=== PATIENT | male | born 1985 | race Caucasian/White ===

== ENCOUNTER 2016-11-25 12:08 | Inpatient (IN) | payer OTHER ==
[2016-11-25 13:26] VITALS: BMI 24.7
--- NOTE | 2016-11-25 15:21 | HP ---
COWS - Scale Resting Pulse: 1= [place] 81-100 Sweatin=Flushed/Facial Moisture Restless Observation: 3= Extraneous Movement Pupil Size: 2= Moderately Dilated Bone or Joint Aches: 2= Severe Diffuse Aches Runny Nose/ Eye Tearin= Runny Nose/Eyes GI Upset > 30mins: 3= Vomiting/Diarrhea Tremor Observation: 2= Slight Tremor Visible Yawning Observation: 2= >3x During Session Anxiety or Irritability: 2=Irritable/Anxious Goose Flesh Skin: 0=Smooth Skin COWS Score: 21 CIWA Score - CIWA Score Nausea/Vomitin Muscle Tremors: 3 Anxiety: 3 Agitation: 3 Paroxysmal Sweats: 2 Orientation: 0-Oriented Tacttile Disturbances: 2-Mild Itch/Numbness/Burn Auditory Disturbances: 2-Mild Harshness/Frighten Visual Disturbances: 2-Mild Sensitivity Headache: 2-Mild CIWA-Ar Total Score: 22 Admission ROS BHS - HPI Chief Complaint: I NEED HELP TO STOP USING HEROIN,ALCOHOL,XANAX Allergies/Adverse Reactions: Allergies Allergy/AdvReac Type Severity Reaction Status Date / Time Penicillins Allergy Itching Verified 11/25/16 15:06 History of Present Illness: THIS 31 YEARS OLD MALE WITH HEROIN,ALCOHOL AND XANAX DEPENDENCE,WITHDRAWAL SYMPTOM,LAST DETOX [facility] 08/19/16 TO 08/21/16 MULTIPLE ADMISSIONS FOR DETOX WEIGHT LOSS NICOTINE DEPENDENCE ANXIETY LONGEST PERIOD OF SOBRIETY 6 MONTHS Exam Limitations: No Limitations - Ebola screening Have you traveled outside of the country in the last 21 days: No Have you had contact with anyone from an Ebola affected area: No Have you been sick,other than usual withdrawal symptoms: No - Review of Systems Constitutional: Chills, Diaphoresis, Loss of Appetite, Malaise, Night Sweats, Changes in sleep, Weakness, Unintentional Wgt. Loss EENT: reports: Tearing, Nose Congestion Respiratory: reports: No Symptoms reported Cardiac: reports: Palpitations GI: reports: Diarrhea, Nausea, Vomiting, Abdominal cramping : reports: No Symptoms Reported Musculoskeletal: reports: Back Pain, Joint Pain, Muscle Pain, Joint Stiffness Integumentary: reports: Dryness Neuro: reports: Headache, Tremors Endocrine: reports: No Symptoms Reported Hematology: reports: No Symptoms Reported Psychiatric: reports: Agitated Patient History - Patient Medical History Hx Anemia: No Hx Asthma: No Hx Chronic Obstructive Pulmonary Disease (COPD): No Hx Cancer: No Hx Cardiac Disorders: No Hx Congestive Heart Failure: No Hx Hypertension: No Hx Hypercholesterolemia: No Hx Pacemaker: No HX Cerebrovascular Accident: No Hx Seizures: Yes (LAST 2014) Hx Dementia: No Hx Diabetes: No Hx Gastrointestinal Disorders: No Hx Liver Disease: No Hx Genitourinary Disorders: No Hx Sexually Transmitted Disorders: No Hx Renal Disease (ESRD): No Hx Thyroid Disease: No Hx Human Immunodeficiency Virus (HIV): No (05/02/16 NEGATIVE) Hx Hepatitis C: No Hx Depression: No Hx Suicide Attempt: No Hx Bipolar Disorder: No Hx Schizophrenia: No Other Medical History: NO SUICIDAL,NO HOMICIDAL - Patient Surgical History Past Surgical History: Yes Hx Neurologic Surgery: No Hx Cataract Extraction: No Hx Cardiac Surgery: No Hx Lung Surgery: No Hx Breast Surgery: No Hx Breast Biopsy: No Hx Abdominal Surgery: No Hx Appendectomy: No Hx Cholecystectomy: No Hx Genitourinary Surgery: No Hx Section: No Hx Orthopedic Surgery: No Other Surgical History: tonsilectomy age 7 Anesthesia Reaction: No - PPD History Previous Implant?: Yes Documented Results: Positive w/o proof Implanted On Prior R Admission?: No PPD to be Administered?: No - Smoking Cessation Smoking history: Current every day smoker Have you smoked in the past 12 months: Yes Aproximately how many cigarettes per day: 20 Cigars Per Day: 0 Hx Chewing Tobacco Use: No Initiated information on smoking cessation: Yes 'Breaking Loose' booklet given: 11/25/16 - Substances Abused Heroin Route: Injection Frequency: Daily Amount used: 20 bags Age of first use: 23 Date of Last Use: 11/24/16 Alprazolam (Xanax) Route: Oral Frequency: Daily Amount used: 6mg Age of first use: 18 Date of Last Use: 11/24/16 Alcohol Route: Oral Frequency: Daily Amount used: 1 pint vodka Age of first use: 14 Date of Last Use: 11/24/16 Marijuana/Hashish Route: Smoking Frequency: Daily Amount used: 1-2 joints Age of first use: 14 Date of Last Use: 11/25/16 Family Disease History - Family Disease History Family Disease History: Diabetes: Mother Admission Physical Exam BHS - Vital Signs Vital Signs: Vital Signs - 24 hr 11/25/16 13:24 Temperature 98.1 F Pulse Rate 87 Respiratory 18 Rate Blood Pressure 130/81 - Physical General Appearance: Yes: Moderate Distress, Tremorous, Irritable, Sweating, Anxious HEENTM: Yes: Nasal Congestion Respiratory: Yes: Lungs Clear Neck: Yes: Within Normal Limits Breast: Yes: Within Normal Limits Cardiology: Yes: Regular Rhythm, Regular Rate, S1, S2 Abdominal: Yes: Within Normal Limits, Normal Bowel Sounds, Non Tender, Flat, Soft Genitourinary: Yes: Within Normal Limits Back: Yes: Muscle Spasm Musculoskeletal: Yes: Back pain, Joint Stiffness, Muscle Pain Extremities: Yes: Tremors Neurological: 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 (4) Sedative hypnotic or anxiolytic dependence Current Visit: No Status: Chronic (5) Alcohol dependence with uncomplicated withdrawal Current Visit: Yes Status: Acute (6) Weight loss Current Visit: Yes Status: Acute (7) Anxiety and depression Current Visit: Yes Status: Acute [facility]ared for [facility]mission [facility] Level of Care: Medically Managed Detox Regimen/Protocol: Methadone/Valium [facility] Breath Alcohol Content Breath Alcohol Content: 0 Urine Drug Screen - Results Drug Screen Negative: No Urine Drug Screen Results: THC-Marijuana, OPI-Opiates, BZO-Benzodiazepines, MTD- Methadone, OXY-Oxycodone
[2016-11-25] MEDS ORDERED: guaiFENesin/D-METHORPHAN HB 10 ML UNIT-DOSE CUPS PO PRN (15:27)
[2016-11-25] MEDS ORDERED: MAG HYDROX/AL HYDROX/SIMETH 30 ML UNIT-DOSE CUP PO PRN (15:27)
[2016-11-25] MEDS ORDERED: MAGNESIUM CITRATE 300 ML BOTTLE PO PRN (15:27)
[2016-11-25] MEDS ORDERED: IBUPROFEN 400 MG TABLET (FP) PO PRN (15:27)
[2016-11-25] MEDS ORDERED: LOPERAMIDE HCL 2 MG CAPSULE PO PRN (15:27)
[2016-11-25] MEDS ORDERED: MAGNESIUM HYDROX 2400MG/30ML ORAL SUSPENSION 30 ML CUP PO PRN (15:27)
[2016-11-25] MEDS ORDERED: P-EPHED 60MG/TRIPROLIDI 2.5MG TABLET PO PRN (15:27)
[2016-11-25] MEDS ORDERED: MENTHOL/PHENOL 1 EACH UD MM PRN (15:27)
[2016-11-25] MEDS ORDERED: hydrOXYzine PAMOATE 50 MG CAPSULE (FP) PO PRN (15:27)
[2016-11-25] MEDS ORDERED: ACETAMINOPHEN 325 MG TABLET (FP) PO PRN (15:27)
[2016-11-25] MEDS ORDERED: diazePAM 5 MG TABLET PO ONE (15:44)
[2016-11-25] MEDS ORDERED: METHADONE HCL 10 MG TABLET (FOR DETOX USE ONLY) PO ONE ×2 (15:45→23:00)
[2016-11-25] MEDS: NICOTINE 21 MG/24 HOURS TOPICAL PATCH TD SCH (17:11)
[2016-11-25 19:20] LABS: URINE APPEARANCE CLEAR; URINE BILIRUBIN NEGATIVE (NEGATIVE); URINE BLOOD NEGATIVE (NEGATIVE); URINE COLOR YELLOW; URINE GLUCOSE (UA) NEGATIVE (NEGATIVE); URINE KETONE NEGATIVE (NEGATIVE); URINE LEUK ESTERASE NEGATIVE (NEGATIVE); URINE NITRITE NEGATIVE (NEGATIVE); URINE UROBILINOGEN 2.0 E.U/dl E.U./dl (0.2-1.0)
[2016-11-25 19:29] LABS: URINE PROTEIN 1+ (NEGATIVE)
[2016-11-25 19:38] LABS: URINE MUCUS FEW; URINE RBC 1 /hpf (0-3)
[2016-11-25 19:53] LABS: HIV 1 & 2 AB NEGATIVE; HIV 1 AGp24 NEGATIVE
[2016-11-25] MEDS: cloNIDine HCL 0.1 MG TABLET PO SCH (22:46)
[2016-11-25] MEDS: diazePAM 5 MG TABLET PO SCH (22:46)
[2016-11-25] MEDS: THIAMINE HCL 100 MG TABLET (FP) PO SCH (22:46)
[2016-11-25] MEDS: diphenhydrAMINE HCL 50 MG CAPSULE PO PRN (22:48)
[2016-11-26] MEDS: CYCLOBENZAPRINE HCL 10 MG TABLET (FP) PO PRN (05:40)
[2016-11-26] MEDS: diazePAM 5 MG TABLET PO SCH ×3 (05:40→22:17)
[2016-11-26] MEDS: diazePAM 5 MG TABLET PO PRN ×2 (09:01→18:41)
--- NOTE | 2016-11-26 09:26 | CONSULT ---
[facility] Psychiatric Consult - Data Date of interview: 11/26/16 Admission source: [facility] Identifying data: The patient is a 31 year old single white male unemployed and domiciled. Substance Abuse History: Patient reports started using heroin at age og 22, currently IV use 20 bags a day, Xanax up to 6 mg, alcohol- 1 pint of vodka daily use. Medical History: drug related seizures. Psychiatric History: Patient reports no history of psychiatric hospitalizations. States was treated for anxiety and PTSD while in rehab. or detox, treated with Buspar, Remeron, Gabapentin, Seroquel. Non-compliant with treatment and aftercare, he admits feeling very anxious and having nightmares, willing to restart Gabapentin and Remeron. Physical/Sexual Abuse/Trauma History: Patient denies history of sexual, physical and verbal abuse. Mental Status Exam - Mental Status Exam Alert and Oriented to: Time, Place, Person Cognitive Function: Grossly Intact Patient Appearance: Unkempt Mood: Apathetic, Anxious Affect: Appropriate, Mood Congruent Patient Behavior: Cooperative Speech Pattern: Clear, Appropriate Voice Loudness: Normal Thought Process: Intact Thought Disorder: Not Present Hallucinations: Denies Suicidal Ideation: Denies Homicidal Ideation: Denies Insight/Judgement: Fair Sleep: Fair Appetite: Good Muscle strength/Tone: Normal Gait/Station: Normal Psychiatric Findings - Problem List ([place] 1, 2,3) (1) Alcohol dependence with uncomplicated withdrawal Current Visit: Yes Status: Acute (2) Opioid dependence with withdrawal Current Visit: No Status: Chronic (3) Sedative hypnotic or anxiolytic dependence Current Visit: No Status: Chronic (4) RENE (generalized anxiety disorder) Current Visit: Yes Status: Acute (5) PTSD (post-traumatic stress disorder) Current Visit: Yes Status: Acute - Initial Treatment Plan Initial Treatment Plan: will restart Remeron 15 mg po hs, Gabapentin 300 mg po bid.
[2016-11-26 09:36] LABS: MCH 30.9 pg (25.7-33.7); MCHC 34.5 g/dl (32.0-35.9); MEAN CELL VOLUME 89.5 fl (80-96); MEAN PLT VOLUME 9.7 fl (7.5-11.1); PLATELET COUNT 211 K/MM3 (134-434); WHITE BLOOD COUNT 4.9 K/mm3 (4.0-10.0)
[2016-11-26 09:55] LABS: ALK PHOS 62 U/L (45-117); ANION GAP 7 (8-16); BILIRUBIN,TOTAL 0.5 mg/dL (0.2-1.0); CALCIUM 8.8 mg/dL (8.5-10.1); CO2 33 mmol/L (21-32); CREATININE 0.9 mg/dL (0.7-1.3); GLUCOSE,RANDOM 126 mg/dL (74-106); SGOT/AST 32 U/L (15-37); SGPT/ALT 20 U/L (12-78); TOT PROT 6.8 g/dl (6.4-8.2)
[2016-11-26] MEDS ORDERED: METHADONE HCL 10 MG TABLET (FOR DETOX USE ONLY) PO SCH (10:00)
[2016-11-26] MEDS: ASPIRIN 81 MG CHEWABLE TABLETS PO SCH (10:30)
[2016-11-26] MEDS: cloNIDine HCL 0.1 MG TABLET PO SCH ×2 (10:30→22:18)
[2016-11-26] MEDS: PRENATAL VITAMINS W/ FOLIC ACID TABLET (FP) PO SCH (10:30)
[2016-11-26] MEDS: NICOTINE 21 MG/24 HOURS TOPICAL PATCH TD SCH (10:30)
[2016-11-26] MEDS: GABAPENTIN 300 MG CAPSULE (FP) PO SCH ×2 (10:31→22:18)
--- NOTE | 2016-11-26 10:36 | EKG ---
Test Reason : Blood Pressure : / mmHG Vent. Rate : 051 BPM Atrial Rate : 051 BPM P-R Int : 154 ms QRS Dur : 092 ms QT Int : 446 ms P-R-T Axes : 053 061 051 degrees QTc Int : 411 ms SINUS BRADYCARDIA WITH SINUS ARRHYTHMIA OTHERWISE NORMAL ECG WHEN COMPARED WITH ECG OF 25-NOV-2016 17:17, NONSPECIFIC T WAVE ABNORMALITY NOW EVIDENT IN LATERAL LEADS Confirmed by NICOLETTE MAYNARD, JACK ([id number]) on 11/26/2016 10:36:31 AM Referred By: Confirmed By:JACK WILL MD
--- NOTE | 2016-11-26 10:38 | EKG ---
Test Reason : Blood Pressure : / mmHG Vent. Rate : 059 BPM Atrial Rate : 059 BPM P-R Int : 138 ms QRS Dur : 096 ms QT Int : 418 ms P-R-T Axes : 069 067 063 degrees QTc Int : 413 ms SINUS BRADYCARDIA WITH SINUS ARRHYTHMIA OTHERWISE NORMAL ECG NO PREVIOUS ECGS AVAILABLE Confirmed by NICOLETTE MAYNARD, JACK ([id number]) on 11/26/2016 10:37:44 AM Referred By: Confirmed By:JACK WILL MD
--- NOTE | 2016-11-26 11:12 | PN ---
[facility] CIWA - CIWA Score Nausea/Vomitin-No Nausea/No Vomiting Muscle Tremors: 4-Moderate,w/Arms Extend Anxiety: 4-Mod. Anxious/Guarded Agitation: 4-Moderately Restless Paroxysmal Sweats: 1-Minimal Palms Moist Orientation: 0-Oriented Tacttile Disturbances: 3-Moderate Itch/Numb/Burn Auditory Disturbances: 0-None Visual Disturbances: 0-None Headache: 0-None Present CIWA-Ar Total Score: 16 S COWS - Scale Resting Pulse: 0= [place] 80 or Below Sweatin= Chills/Flushing Restless Observation: 3= Extraneous Movement Pupil Size: 2= Moderately Dilated Bone or Joint Aches: 4=Acute Joint/Muscle Pain Runny Nose/ Eye Tearin= Runny Nose/Eyes GI Upset > 30mins: 1= Stomach Cramp Tremor Observation of Outstretched Hands: 2= Slight Tremor Visible Yawning Observation: 1= 1-2x During Session Anxiety or Irritability: 2=Irritable/Anxious Goose Flesh Skin: 0=Smooth Skin COWS Score: 18 [facility] Progress Note (SOAP) Subjective: ANXIETY,RUNNY NOSE,MUSCLE ACHES,INTERMITTENT SLEEP Objective: 11/26/16 11:11 Vital Signs Temperature 96.6 F L 11/26/16 10:22 Pulse Rate 74 11/26/16 10:22 Respiratory Rate 16 11/26/16 10:22 Blood Pressure 105/73 11/26/16 10:22 O2 Sat by Pulse Oximetry (%) Laboratory Last Values WBC 4.9 K/mm3 (4.0-10.0) D 11/26/16 05:30 RBC 4.50 M/mm3 (4.00-5.60) 11/26/16 05:30 Hgb 13.9 GM/dL (11.7-16.9) 11/26/16 05:30 Hct 40.3 % (35.4-49) 11/26/16 05:30 MCV 89.5 fl (80-96) 11/26/16 05:30 MCHC 34.5 g/dl (32.0-35.9) 11/26/16 05:30 RDW 13.0 % (11.9-15.9) 11/26/16 05:30 Plt Count 211 K/MM3 (134-434) D 11/26/16 05:30 MPV 9.7 fl (7.5-11.1) 11/26/16 05:30 Sodium 140 mmol/L (136-145) 11/26/16 05:30 Potassium 3.8 mmol/L (3.5-5.1) 11/26/16 05:30 Chloride 100 mmol/L (98-107) 11/26/16 05:30 Carbon Dioxide 33 mmol/L (21-32) H 11/26/16 05:30 Anion Gap 7 (8-16) L 11/26/16 05:30 BUN 11 mg/dL (7-18) 11/26/16 05:30 Creatinine 0.9 mg/dL (0.7-1.3) 11/26/16 05:30 Creat Clearance w eGFR > 60 (>60) 11/26/16 05:30 Random Glucose 126 mg/dL (74-106) H D 11/26/16 05:30 Calcium 8.8 mg/dL (8.5-10.1) 11/26/16 05:30 Total Bilirubin 0.5 mg/dL (0.2-1.0) D 11/26/16 05:30 AST 32 U/L (15-37) 11/26/16 05:30 ALT 20 U/L (12-78) D 11/26/16 05:30 Alkaline Phosphatase 62 U/L (45-117) 11/26/16 05:30 Total Protein 6.8 g/dl (6.4-8.2) 11/26/16 05:30 Albumin 4.0 g/dl (3.4-5.0) 11/26/16 05:30 Urine Color Yellow 11/25/16 15:00 Urine Appearance Clear 11/25/16 15:00 Urine pH 7.0 (5.0-8.0) 11/25/16 15:00 Ur Specific [place] 1.027 (1.001-1.035) 11/25/16 15:00 Urine Protein 1+ (NEGATIVE) H 11/25/16 15:00 Urine Glucose (UA) Negative (NEGATIVE) 11/25/16 15:00 Urine Ketones Negative (NEGATIVE) 11/25/16 15:00 Urine Blood Negative (NEGATIVE) 11/25/16 15:00 Urine Nitrite Negative (NEGATIVE) 11/25/16 15:00 Urine Bilirubin Negative (NEGATIVE) 11/25/16 15:00 Urine Urobilinogen 2.0 e.u/dl E.U./dl (0.2-1.0) 11/25/16 15:00 Ur Leukocyte Esterase Negative (NEGATIVE) 11/25/16 15:00 Urine RBC 1 /hpf (0-3) 11/25/16 15:00 Urine WBC None /hpf (3-5) 11/25/16 15:00 Urine Mucus Few 11/25/16 15:00 HIV 1&2 Antibody Screen Negative 11/25/16 11:00 HIV P24 Antigen Negative 11/25/16 11:00 Assessment: 11/26/16 11:11 WITHDRAWAL SX Plan: CONTINUE DETOX
[2016-11-26] MEDS ORDERED: MIRTAZAPINE 15 MG TABLET (FP) PO SCH (22:00)
[2016-11-26] MEDS: diphenhydrAMINE HCL 50 MG CAPSULE PO PRN (22:18)
[2016-11-26] MEDS: THIAMINE HCL 100 MG TABLET (FP) PO SCH (22:20)
[2016-11-27] MEDS: diazePAM 5 MG TABLET PO PRN (05:38)
[2016-11-27] MEDS: CYCLOBENZAPRINE HCL 10 MG TABLET (FP) PO PRN (05:38)
[2016-11-27] MEDS ORDERED: diazePAM 5 MG TABLET PO SCH (10:00)
[2016-11-27] MEDS ORDERED: METHADONE HCL 5 MG TABLET (FOR DETOX USE ONLY) PO SCH (10:00)
[2016-11-27] MEDS: ASPIRIN 81 MG CHEWABLE TABLETS PO SCH (10:21)
[2016-11-27] MEDS: PRENATAL VITAMINS W/ FOLIC ACID TABLET (FP) PO SCH (10:21)
[2016-11-27] MEDS: cloNIDine HCL 0.1 MG TABLET PO SCH (10:21)
[2016-11-27] MEDS: GABAPENTIN 300 MG CAPSULE (FP) PO SCH (10:21)
[2016-11-27] MEDS: NICOTINE 21 MG/24 HOURS TOPICAL PATCH TD SCH (10:22)
[2016-11-27 10:43] VITALS: BP 106/61; PULSE 60; TEMP 97.7
--- NOTE | 2016-11-27 10:59 | DS ---
[facility] Detox Discharge Summary Admission Date: 11/25/16 Discharge Date: 11/27/16 - History Present History: Alcohol Dependence, Cannabis Dependence, Opioid Dependence, Sedative Dependence Additional Comments: PT DECLINED TO CONTINUE WITH DETOX STATING "I DON'T WANNA BE HERE". PT SIGNED AMA. PREVIOUS HX OF TWO AMAs OUT OF 3 PRIOR ADMISSIONS. PT COUNSELED BUT STILL WANTS TO LEAVE. ALERT O X 3. NAD. ADDENDUM:PT DID NOT COMPLETE ROUTINE DETOX ADMISSION EXAM BY NOT MAKING HIMSELF AVAILABLE TO DO CXR TODAY IN LIEU OF PPD...HX PPD+. PT HAS NOT SATISFIED THIS REQUIREMENT SINCE HIS PREVIOUS 3 ADMISSIONS IN REHAB AND DETOX COMBINED IN 2016. Pertinent Past History: RENE DEPRESSION - Physical Exam Results Vital Signs: Vital Signs Temperature 97.7 F 11/27/16 10:43 Pulse Rate 60 11/27/16 10:43 Respiratory Rate 18 11/27/16 10:43 Blood Pressure 106/61 11/27/16 10:43 O2 Sat by Pulse Oximetry (%) Pertinent Admission Physical Exam Findings: WITHDRAWAL SX Laboratory Last Values WBC 4.9 K/mm3 (4.0-10.0) D 11/26/16 05:30 RBC 4.50 M/mm3 (4.00-5.60) 11/26/16 05:30 Hgb 13.9 GM/dL (11.7-16.9) 11/26/16 05:30 Hct 40.3 % (35.4-49) 11/26/16 05:30 MCV 89.5 fl (80-96) 11/26/16 05:30 MCHC 34.5 g/dl (32.0-35.9) 11/26/16 05:30 RDW 13.0 % (11.9-15.9) 11/26/16 05:30 Plt Count 211 K/MM3 (134-434) D 11/26/16 05:30 MPV 9.7 fl (7.5-11.1) 11/26/16 05:30 Sodium 140 mmol/L (136-145) 11/26/16 05:30 Potassium 3.8 mmol/L (3.5-5.1) 11/26/16 05:30 Chloride 100 mmol/L (98-107) 11/26/16 05:30 Carbon Dioxide 33 mmol/L (21-32) H 11/26/16 05:30 Anion Gap 7 (8-16) L 11/26/16 05:30 BUN 11 mg/dL (7-18) 11/26/16 05:30 Creatinine 0.9 mg/dL (0.7-1.3) 11/26/16 05:30 Creat Clearance w eGFR > 60 (>60) 11/26/16 05:30 Random Glucose 126 mg/dL (74-106) H D 11/26/16 05:30 Calcium 8.8 mg/dL (8.5-10.1) 11/26/16 05:30 Total Bilirubin 0.5 mg/dL (0.2-1.0) D 11/26/16 05:30 AST 32 U/L (15-37) 11/26/16 05:30 ALT 20 U/L (12-78) D 11/26/16 05:30 Alkaline Phosphatase 62 U/L (45-117) 11/26/16 05:30 Total Protein 6.8 g/dl (6.4-8.2) 11/26/16 05:30 Albumin 4.0 g/dl (3.4-5.0) 11/26/16 05:30 Urine Color Yellow 11/25/16 15:00 Urine Appearance Clear 11/25/16 15:00 Urine pH 7.0 (5.0-8.0) 11/25/16 15:00 Ur Specific [place] 1.027 (1.001-1.035) 11/25/16 15:00 Urine Protein 1+ (NEGATIVE) H 11/25/16 15:00 Urine Glucose (UA) Negative (NEGATIVE) 11/25/16 15:00 Urine Ketones Negative (NEGATIVE) 11/25/16 15:00 Urine Blood Negative (NEGATIVE) 11/25/16 15:00 Urine Nitrite Negative (NEGATIVE) 11/25/16 15:00 Urine Bilirubin Negative (NEGATIVE) 11/25/16 15:00 Urine Urobilinogen 2.0 e.u/dl E.U./dl (0.2-1.0) 11/25/16 15:00 Ur Leukocyte Esterase Negative (NEGATIVE) 11/25/16 15:00 Urine RBC 1 /hpf (0-3) 11/25/16 15:00 Urine WBC None /hpf (3-5) 11/25/16 15:00 Urine Mucus Few 11/25/16 15:00 RPR Titer Nonreactive (NONREACTIVE) 11/26/16 05:30 HIV 1&2 Antibody Screen Negative 11/25/16 11:00 HIV P24 Antigen Negative 11/25/16 11:00 - Treatment Hospital Course: Discharged Condition Good - Medication Discharge Medications: Ambulatory Orders Gabapentin [Neurontin -] 300 mg PO BID #60 capsule 11/26/16 Mirtazapine [Remeron -] 15 mg PO HS #30 tablet 11/26/16 - Diagnosis (1) Alcohol dependence with uncomplicated withdrawal Current Visit: Yes Status: Acute (2) Weight loss Current Visit: Yes Status: Chronic (3) Nicotine dependence Current Visit: Yes Status: Chronic Qualifiers: Nicotine product type: cigarettes Substance use status: in withdrawal Qualified Code(s): F17.213 - Nicotine dependence, cigarettes, with withdrawal (4) Opioid dependence with withdrawal Current Visit: Yes Status: Acute (5) Positive PPD Current Visit: Yes Status: Chronic (6) Sedative hypnotic or anxiolytic dependence Current Visit: Yes Status: Acute - AMA Did Patient Leave Against Medical Advice: Yes (AMA)
[2016-11-29] MEDS ORDERED: diazePAM 5 MG TABLET PO SCH (10:00)
[2016-11-29] MEDS ORDERED: METHADONE HCL 10 MG TABLET (FOR DETOX USE ONLY) PO SCH (10:00)
[2016-11-30] MEDS ORDERED: METHADONE HCL 5 MG TABLET (FOR DETOX USE ONLY) PO SCH (06:00)
== END 2016-11-27 11:27 | disposition left against medical advice (07) | DRG 770 ==
LOC: YASAS 12:08 → Y3N 15:43
PROVIDERS: ADMIT Internal Medicine; ATTEND Internal Medicine
PROC: HZ2ZZZZ Detoxification Services for Substance Abuse Treatment (ICD-10-PCS; principal; 2016-11-27)
DX: F11.23 Opioid dependence with withdrawal (principal); F13.20 Sedative, hypnotic or anxiolytic dependence, uncomplicated; F10.230 Alcohol dependence with withdrawal, uncomplicated; F17.210 Nicotine dependence, cigarettes, uncomplicated; F41.1 Generalized anxiety disorder; F43.10 Post-traumatic stress disorder, unspecified; R76.11 Nonspecific reaction to tuberculin skin test without active tuberculosis; R63.4 Abnormal weight loss; Z68.24 Body mass index [BMI] 24.0-24.9, adult; Z59.0 Homelessness
CPT/HCPCS: 36415; 80053; 81003; 81015; 85027; 86593; 87389; 93005; 93010

== ENCOUNTER 2017-01-02 15:05 | Inpatient (IN) | payer OTHER ==
[2017-01-02 16:05] VITALS: BMI 24.7
--- NOTE | 2017-01-02 16:18 | HP ---
COWS - Scale Resting Pulse: 1= [place] 81-100 Sweatin=Flushed/Facial Moisture Restless Observation: 3= Extraneous Movement Pupil Size: 2= Moderately Dilated Bone or Joint Aches: 2= Severe Diffuse Aches Runny Nose/ Eye Tearin= Runny Nose/Eyes GI Upset > 30mins: 3= Vomiting/Diarrhea Tremor Observation: 2= Slight Tremor Visible Yawning Observation: 2= >3x During Session Anxiety or Irritability: 2=Irritable/Anxious Goose Flesh Skin: 0=Smooth Skin COWS Score: 21 CIWA Score - CIWA Score Nausea/Vomitin Muscle Tremors: 3 Anxiety: 3 Agitation: 3 Paroxysmal Sweats: 2 Orientation: 0-Oriented Tacttile Disturbances: 2-Mild Itch/Numbness/Burn Auditory Disturbances: 2-Mild Harshness/Frighten Visual Disturbances: 2-Mild Sensitivity Headache: 2-Mild CIWA-Ar Total Score: 22 Admission ROS BHS - HPI Chief Complaint: I NEED HELP TO STOP USING DRUGS AND DRINKING,TO GET MY LIFE BACK Allergies/Adverse Reactions: Allergies Allergy/AdvReac Type Severity Reaction Status Date / Time Penicillins Allergy Itching Verified 01/02/17 16:08 History of Present Illness: THIS 31 YEARS OLD MALE WITH HEROIN AND XANAX DEPENDENCE WITH ALCOHOL DEPENDENCE, WITHDRAWAL SYMPTOM,LAST DETOX 11/25/16 TO 11/27/16 NOT COMPLETED, SEIZURE DRUG WITHDRAWAL LAST 2015 ANXIETY,DEPRESSION,INSOMNIA NICOTINE DEPENDENCE LONGEST PERID OF SOBRIETY 9 MONTHS TINEA VSICOLOR Exam Limitations: No Limitations - Ebola screening Have you traveled outside of the country in the last 21 days: No Have you had contact with anyone from an Ebola affected area: No Have you been sick,other than usual withdrawal symptoms: No Do you have a fever: No - Review of Systems Constitutional: Chills, Diaphoresis, Loss of Appetite, Malaise, Night Sweats, Changes in sleep, Weakness, Unintentional Wgt. Loss EENT: reports: Tearing, Nose Congestion Respiratory: reports: No Symptoms reported Cardiac: reports: Palpitations GI: reports: Diarrhea, Nausea, Vomiting, Abdominal cramping : reports: No Symptoms Reported Musculoskeletal: reports: Back Pain, Joint Pain, Muscle Pain, Joint Stiffness Integumentary: reports: Dryness, Rash Neuro: reports: Headache, Tremors Endocrine: reports: No Symptoms Reported Hematology: reports: No Symptoms Reported Psychiatric: reports: Judgement Intact (INSOMNIA), Mood/Affect Appropiate, Orientated x3, Anxious, Depressed, other Patient History - Patient Medical History Hx Anemia: No Hx Asthma: No Hx Chronic Obstructive Pulmonary Disease (COPD): No Hx Cancer: No Hx Cardiac Disorders: No Hx Congestive Heart Failure: No Hx Hypertension: No Hx Hypercholesterolemia: No Hx Pacemaker: No HX Cerebrovascular Accident: No Hx Seizures: Yes (LAST 2015 DRUG WITHDRAWAL) Hx Dementia: No Hx Diabetes: No Hx Gastrointestinal Disorders: No Hx Liver Disease: No Hx Genitourinary Disorders: No Hx Sexually Transmitted Disorders: No Hx Renal Disease (ESRD): No Hx Thyroid Disease: No Hx Human Immunodeficiency Virus (HIV): No (11/03 NEGATIVE) Hx Hepatitis C: No Hx Depression: Yes (ANXIETY,INSOMNIA) Hx Suicide Attempt: No Hx Bipolar Disorder: No Hx Schizophrenia: No Other Medical History: NO SUICODAL,NO HOMIIDAL - Patient Surgical History Past Surgical History: Yes Hx Neurologic Surgery: No Hx Cataract Extraction: No Hx Cardiac Surgery: No Hx Lung Surgery: No Hx Breast Surgery: No Hx Breast Biopsy: No Hx Abdominal Surgery: No Hx Appendectomy: No Hx Cholecystectomy: No Hx Genitourinary Surgery: No Hx Section: No Hx Orthopedic Surgery: No Other Surgical History: tonsilectomy age 7 Anesthesia Reaction: No - PPD History Previous Implant?: Yes Documented Results: Positive w/o proof Implanted On Prior [facility] Admission?: No PPD to be Administered?: No - Smoking Cessation Smoking history: Current every day smoker Have you smoked in the past 12 months: Yes Aproximately how many cigarettes per day: 20 Cigars Per Day: 0 Hx Chewing Tobacco Use: No Initiated information on smoking cessation: Yes 'Breaking Loose' booklet given: 01/02/17 - Substance & Tx. History Hx Alcohol Use: Yes Hx Substance Use: Yes Substance Use Type: Alcohol, Heroin, Tranquilizers Hx Substance Use Treatment: Yes ([facility] 11/25/16 TO 11/27/16 NOT COMPLETED) - Substances Abused Alcohol Route: Oral Frequency: Daily Amount used: vodka(1 pint) Age of first use: 14 Date of Last Use: 01/01/17 Alprazolam (Xanax) Route: Oral Frequency: Daily Amount used: 5-6 stiks Age of first use: 18 Date of Last Use: 01/01/17 Heroin Route: Injection Frequency: Daily Amount used: 20 bags Age of first use: 23 Date of Last Use: 01/01/17 Marijuana/Hashish Route: Smoking Frequency: Daily Amount used: $20 Age of first use: 14 Date of Last Use: 01/01/17 Family Disease History - Family Disease History Family Disease History: Diabetes: Mother Admission Physical Exam [facility] - Vital Signs Vital Signs: Vital Signs - 24 hr 01/02/17 16:04 Temperature 98.2 F Pulse Rate 89 Respiratory 18 Rate Blood Pressure 130/100 - Physical General Appearance: Yes: Moderate Distress, Intoxicated, Tremorous, Irritable, Sweating, Anxious HEENTM: Yes: Normocephalic, Pharynx Normal, Nasal Congestion (RING IN THE TONGUE ) Respiratory: Yes: Lungs Clear, Normal Breath Sounds, No Respiratory Distress Breast: Yes: Within Normal Limits Cardiology: Yes: Within Normal Limits, Regular Rhythm, Regular Rate, S1, S2 Abdominal: Yes: Within Normal Limits, Normal Bowel Sounds, Non Tender, Soft, Increased Bowel Sounds Genitourinary: Yes: Within Normal Limits Back: Yes: Muscle Spasm Musculoskeletal: Yes: Back pain, Joint Stiffness, Muscle Pain, Muscle weakness Extremities: Yes: Normal Range of Motion, Non-Tender, Tremors 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, Fully Oriented, Alert, Motor Strength 5/5 Integumentary: Yes: Dry, Track Florez (TINEA VESICOLOR CHEST WALL) Lymphatic: Yes: Within Normal Limits - Diagnostic (1) Anxiety and depression Current Visit: No Status: Acute (2) Opioid dependence with withdrawal Current Visit: No Status: Acute (3) PTSD (post-traumatic stress disorder) Current Visit: No Status: Acute (4) Sedative hypnotic or anxiolytic dependence Current Visit: No Status: Acute (5) Nicotine dependence Current Visit: No Status: Chronic Qualifiers: Nicotine product type: cigarettes Substance use status: in withdrawal Qualified Code(s): F17.213 - Nicotine dependence, cigarettes, with withdrawal (6) Positive PPD Current Visit: No Status: Chronic Comment: received treatment. (7) Weight loss Current Visit: No Status: Chronic (8) Tinea versicolor Current Visit: Yes Status: Acute Cleared for Admission [facility] - Detox or Rehab [facility] Level of Care: Medically Managed Detox Regimen/Protocol: Methadone/Valium [facility] Breath Alcohol Content Breath Alcohol Content: 0 Urine Drug Screen - Results Drug Screen Negative: No Urine Drug Screen Results: THC-Marijuana, OPI-Opiates, BZO-Benzodiazepines, MTD- Methadone, OXY-Oxycodone
[2017-01-02] MEDS ORDERED: METHADONE HCL 10 MG TABLET (FOR DETOX USE ONLY) PO ONE ×2 (16:35→23:00)
[2017-01-02] MEDS ORDERED: diazePAM 5 MG TABLET PO ONE (16:35)
[2017-01-02] MEDS ORDERED: P-EPHED 60MG/TRIPROLIDI 2.5MG TABLET PO PRN (16:36)
[2017-01-02] MEDS ORDERED: guaiFENesin/D-METHORPHAN HB 10 ML UNIT-DOSE CUPS PO PRN (16:36)
[2017-01-02] MEDS ORDERED: LOPERAMIDE HCL 2 MG CAPSULE PO PRN (16:36)
[2017-01-02] MEDS ORDERED: hydrOXYzine PAMOATE 50 MG CAPSULE (FP) PO PRN (16:36)
[2017-01-02] MEDS ORDERED: IBUPROFEN 400 MG TABLET (FP) PO PRN (16:36)
[2017-01-02] MEDS ORDERED: MAGNESIUM CITRATE 300 ML BOTTLE PO PRN (16:36)
[2017-01-02] MEDS ORDERED: MAG HYDROX/AL HYDROX/SIMETH 30 ML UNIT-DOSE CUP PO PRN (16:36)
[2017-01-02] MEDS ORDERED: MAGNESIUM HYDROX 2400MG/30ML ORAL SUSPENSION 30 ML CUP PO PRN (16:36)
[2017-01-02] MEDS ORDERED: MENTHOL/PHENOL 1 EACH UD MM PRN (16:36)
[2017-01-02] MEDS ORDERED: ACETAMINOPHEN 325 MG TABLET (FP) PO PRN (16:36)
[2017-01-02] MEDS: NICOTINE 21 MG/24 HOURS TOPICAL PATCH TD SCH (18:36)
[2017-01-02] MEDS ORDERED: cloNIDine HCL 0.1 MG TABLET PO SCH (22:00)
[2017-01-02] MEDS: cloNIDine HCL 0.1 MG TABLET PO SCH (22:58)
[2017-01-02] MEDS: diphenhydrAMINE HCL 50 MG CAPSULE PO PRN (22:58)
[2017-01-02] MEDS: THIAMINE HCL 100 MG TABLET (FP) PO SCH (22:58)
[2017-01-02] MEDS: diazePAM 5 MG TABLET PO SCH (22:58)
[2017-01-03] MEDS: diazePAM 5 MG TABLET PO SCH ×3 (05:17→22:14)
[2017-01-03] MEDS: CYCLOBENZAPRINE HCL 10 MG TABLET (FP) PO PRN (05:17)
[2017-01-03] MEDS: diazePAM 5 MG TABLET PO PRN ×2 (09:27→19:14)
[2017-01-03] MEDS ORDERED: METHADONE HCL 10 MG TABLET (FOR DETOX USE ONLY) PO SCH (10:00)
[2017-01-03 10:01] LABS: MCHC 34.5 g/dl (32.0-35.9); MEAN CELL VOLUME 89.6 fl (80-96); MEAN PLT VOLUME 9.2 fl (7.5-11.1); PLATELET COUNT 179 K/MM3 (134-434); RDW 13.1 % (11.9-15.9); WHITE BLOOD COUNT 4.6 K/mm3 (4.0-10.0)
[2017-01-03 10:06] LABS: ALBUMIN 3.5 g/dl (3.4-5.0); ALK PHOS 65 U/L (45-117); ANION GAP 6 (8-16); CALCIUM 8.7 mg/dL (8.5-10.1); CO2 32 mmol/L (21-32); CREATININE 0.8 mg/dL (0.7-1.3); GLUCOSE,RANDOM 89 mg/dL (74-106); SGPT/ALT 16 U/L (12-78)
[2017-01-03 10:09] LABS: BILIRUBIN,TOTAL 0.6 mg/dL (0.2-1.0); SGOT/AST 18 U/L (15-37); TOT PROT 6.4 g/dl (6.4-8.2)
[2017-01-03] MEDS: PRENATAL VITAMINS W/ FOLIC ACID TABLET (FP) PO SCH (10:59)
[2017-01-03] MEDS: cloNIDine HCL 0.1 MG TABLET PO SCH ×2 (10:59→22:14)
[2017-01-03] MEDS: NICOTINE 21 MG/24 HOURS TOPICAL PATCH TD SCH (10:59)
--- NOTE | 2017-01-03 11:36 | EKG ---
Test Reason : Blood Pressure : / mmHG Vent. Rate : 064 BPM Atrial Rate : 064 BPM P-R Int : 148 ms QRS Dur : 098 ms QT Int : 400 ms P-R-T Axes : 077 070 061 degrees QTc Int : 412 ms NORMAL SINUS RHYTHM NORMAL ECG WHEN COMPARED WITH ECG OF 26-NOV-2016 06:40, NO SIGNIFICANT CHANGE WAS FOUND Confirmed by GINGER BUAM MD ([id number]) on 01/03/2017 11:36:37 AM Referred By: Confirmed By:GINGER BAUM MD
[2017-01-03 12:35] LABS: HIV 1 AGp24 NEGATIVE
[2017-01-03 12:36] LABS: HIV 1 & 2 AB NEGATIVE
--- NOTE | 2017-01-03 13:09 | PN ---
S CIWA - CIWA Score Nausea/Vomitin Muscle Tremors: 4-Moderate,w/Arms Extend Anxiety: 4-Mod. Anxious/Guarded Agitation: 4-Moderately Restless Paroxysmal Sweats: 3 Orientation: 0-Oriented Tacttile Disturbances: 1-Very Mild Itch/Numbness Auditory Disturbances: 0-None Visual Disturbances: 0-None Headache: 2-Mild CIWA-Ar Total Score: 21 BHS COWS - Scale Resting Pulse: 1= [place] 81-100 Sweatin= Chills/Flushing Restless Observation: 3= Extraneous Movement Pupil Size: 0= Normal to Room Light Bone or Joint Aches: 2= Severe Diffuse Aches Runny Nose/ Eye Tearin= Runny Nose/Eyes GI Upset > 30mins: 3= Vomiting/Diarrhea Tremor Observation of Outstretched Hands: 2= Slight Tremor Visible Yawning Observation: 0= None Anxiety or Irritability: 2=Irritable/Anxious Goose Flesh Skin: 0=Smooth Skin COWS Score: 16 S Progress Note (SOAP) Subjective: Anxious, tremor, sweating, interrupted sleep, diarrhea Objective: 01/03/17 13:05 Last Vital Signs Temp Pulse Resp BP Pulse Ox 97.2 F L 83 16 124/80 01/03/17 12:11 01/03/17 12:11 01/03/17 12:11 01/03/17 12:11 Laboratory Tests 01/03/17 01/03/17 01/03/17 07:16 07:16 07:16 WBC 4.6 RBC 4.58 Hgb 14.2 Hct 41.0 MCV 89.6 MCHC 34.5 RDW 13.1 Plt Count 179 MPV 9.2 Sodium 138 Potassium 4.0 Chloride 100 Carbon Dioxide 32 Anion Gap 6 L BUN 9 Creatinine 0.8 Creat Clearance w eGFR > 60 Random Glucose 89 D Calcium 8.7 Total Bilirubin 0.6 AST 18 D ALT 16 Alkaline Phosphatase 65 Total Protein 6.4 Albumin 3.5 RPR Titer HIV 1&2 Antibody Screen Negative HIV P24 Antigen Negative 01/03/17 07:16 WBC RBC Hgb Hct MCV MCHC RDW Plt Count MPV Sodium Potassium Chloride Carbon Dioxide Anion Gap BUN Creatinine Creat Clearance w eGFR Random Glucose Calcium Total Bilirubin AST ALT Alkaline Phosphatase Total Protein Albumin RPR Titer Nonreactive HIV 1&2 Antibody Screen HIV P24 Antigen Labs noted Assessment: 01/03/17 13:07 Withdrawal symptoms Plan: Continue detox
[2017-01-03] MEDS: diphenhydrAMINE HCL 50 MG CAPSULE PO PRN (22:14)
[2017-01-03] MEDS: THIAMINE HCL 100 MG TABLET (FP) PO SCH (22:14)
[2017-01-04] MEDS: diazePAM 5 MG TABLET PO PRN ×3 (05:27→19:08)
[2017-01-04] MEDS: cloNIDine HCL 0.1 MG TABLET PO SCH ×2 (10:39→22:51)
[2017-01-04] MEDS: NICOTINE 21 MG/24 HOURS TOPICAL PATCH TD SCH (10:39)
[2017-01-04] MEDS: PRENATAL VITAMINS W/ FOLIC ACID TABLET (FP) PO SCH (10:40)
[2017-01-04] MEDS: METHADONE HCL 5 MG TABLET (FOR DETOX USE ONLY) PO SCH (10:40)
[2017-01-04] MEDS: diazePAM 5 MG TABLET PO SCH ×2 (10:40→22:52)
--- NOTE | 2017-01-04 10:46 | PN ---
BHS COWS - Scale Resting Pulse: 0= [place] 80 or Below Sweatin=Flushed/Facial Moisture Restless Observation: 1= Difficult to Sit Still Pupil Size: 0= Normal to Room Light Bone or Joint Aches: 2= Severe Diffuse Aches Runny Nose/ Eye Tearin= Runny Nose/Eyes GI Upset > 30mins: 2= Nausea/Diarrhea Tremor Observation of Outstretched Hands: 2= Slight Tremor Visible Yawning Observation: 1= 1-2x During Session Anxiety or Irritability: 2=Irritable/Anxious Goose Flesh Skin: 0=Smooth Skin COWS Score: 14 BHS Progress Note (SOAP) Subjective: sweating,Anxiety,tremors,interrupted sleep,restless Objective: 01/04/17 10:45 Vital Signs - 8 hr 01/04/17 01/04/17 01/04/17 03:30 06:31 10:02 Temperature 95.7 F L 96.5 F L Pulse Rate 65 75 Respiratory 18 18 18 Rate Blood Pressure 100/63 106/67 Laboratory Last Values WBC 4.6 K/mm3 (4.0-10.0) 01/03/17 07:16 RBC 4.58 M/mm3 (4.00-5.60) 01/03/17 07:16 Hgb 14.2 GM/dL (11.7-16.9) 01/03/17 07:16 Hct 41.0 % (35.4-49) 01/03/17 07:16 MCV 89.6 fl (80-96) 01/03/17 07:16 MCHC 34.5 g/dl (32.0-35.9) 01/03/17 07:16 RDW 13.1 % (11.9-15.9) 01/03/17 07:16 Plt Count 179 K/MM3 (134-434) 01/03/17 07:16 MPV 9.2 fl (7.5-11.1) 01/03/17 07:16 Sodium 138 mmol/L (136-145) 01/03/17 07:16 Potassium 4.0 mmol/L (3.5-5.1) 01/03/17 07:16 Chloride 100 mmol/L (98-107) 01/03/17 07:16 Carbon Dioxide 32 mmol/L (21-32) 01/03/17 07:16 Anion Gap 6 (8-16) L 01/03/17 07:16 BUN 9 mg/dL (7-18) 01/03/17 07:16 Creatinine 0.8 mg/dL (0.7-1.3) 01/03/17 07:16 Creat Clearance w eGFR > 60 (>60) 01/03/17 07:16 Random Glucose 89 mg/dL (74-106) D 01/03/17 07:16 Calcium 8.7 mg/dL (8.5-10.1) 01/03/17 07:16 Total Bilirubin 0.6 mg/dL (0.2-1.0) 01/03/17 07:16 AST 18 U/L (15-37) D 01/03/17 07:16 ALT 16 U/L (12-78) 01/03/17 07:16 Alkaline Phosphatase 65 U/L (45-117) 01/03/17 07:16 Total Protein 6.4 g/dl (6.4-8.2) 01/03/17 07:16 Albumin 3.5 g/dl (3.4-5.0) 01/03/17 07:16 RPR Titer Nonreactive (NONREACTIVE) 01/03/17 07:16 HIV 1&2 Antibody Screen Negative 01/03/17 07:16 HIV P24 Antigen Negative 01/03/17 07:16 labs noted Assessment: 01/04/17 10:46 Withdrawal sx. Plan: Continue detox
--- NOTE | 2017-01-04 11:56 | CONSULT ---
[facility] Psychiatric Consult - Data Date of interview: 01/04/17 Admission source: [facility] Identifying data: Readmission to [facility] for this 31 y/o male seeking detox treatment for alcohol,marijuana and benzodiazepine (xanax) dependence.Patient is single without children,domiciled,unemployed and dependent on relatives for financial support. Substance Abuse History: - Smoking Cessation. Smoking history: Current every day smoker. Have you smoked in the past 12 months: Yes. Aproximately how many cigarettes per day: 20. Cigars Per Day: 0. Hx Chewing Tobacco Use: No. Initiated information on smoking cessation: Yes. 'Breaking Loose' booklet given : 01/02/17. - Substance & Tx. History. Hx Alcohol Use: Yes. Hx Substance Use : Yes. Substance Use Type: Alcohol, Heroin, Tranquilizers. Hx Substance Use Treatment: Yes ([facility] 11/25/16 TO 11/27/16 NOT COMPLETED). - Substances Abused. Alcohol. Route: Oral. Frequency: Daily. Amount used: vodka(1 pint). Age of first use: 14. Date of Last Use: 01/01/17. Alprazolam (Xanax). Route: Oral. Frequency: Daily. Amount used: 5-6 stiks. Age of first use: 18. Date of Last Use: 01/01/17. Heroin. Route: Injection. Frequency: Daily. Amount used: 20 bags. Age of first use: 23. Date of Last Use: 01/01/17. Marijuana/Hashish. Route: Smoking. Frequency: Daily. Amount used: $20. Age of first use: 14. Date of Last Use: 01/01/17. Confirmed by the patient. Medical History: Tinea versicolor.Allergy to penicillins. Psychiatric History: Patient denies. Physical/Sexual Abuse/Trauma History: Patient denies. Additional Comment: Urine Drug Screen Results: THC-Marijuana, OPI-Opiates, BZO- Benzodiazepines, MTD-Methadone, OXY-Oxycodone.Noted. Mental Status Exam - Mental Status Exam Alert and Oriented to: Time, Place, Person Cognitive Function: Good Patient Appearance: Disheveled Mood: Anxious, Apprehensive (mildly) Affect: Appropriate, Normal Range Patient Behavior: Fatigued, Cooperative Speech Pattern: Clear, Appropriate Voice Loudness: Normal Thought Process: Intact, Goal Oriented Thought Disorder: Not Present Hallucinations: Denies Suicidal Ideation: Denies Homicidal Ideation: Denies Insight/Judgement: Fair Sleep: Poorly, Difficulty falling asleep Appetite: Good Muscle strength/Tone: Normal Gait/Station: Normal Psychiatric Findings - Problem List ([place] 1, 2,3) (1) Alcohol dependence with uncomplicated withdrawal Current Visit: Yes Status: Acute (2) Opioid dependence with withdrawal Current Visit: Yes Status: Acute (3) Sedative hypnotic or anxiolytic dependence Current Visit: Yes Status: Acute (4) Nicotine dependence Current Visit: Yes Status: Acute Qualifiers: Nicotine product type: cigarettes Substance use status: in withdrawal Qualified Code(s): F17.213 - Nicotine dependence, cigarettes, with withdrawal (5) Tinea versicolor Current Visit: Yes Status: Chronic (6) Insomnia Current Visit: Yes Status: Chronic - Initial Treatment Plan Initial Treatment Plan: Psychoeducation.Detoxification in progress.Zolpidem 10 mg po hs prn.Patient is informed of the risk of parasomnias.He is also made aware that use of ambien will be brief (only for the duration of detox care) and that no scripts will be issued at discharge.Mr Irvin is in agreement with this plan of care.Observation.
[2017-01-04] MEDS ORDERED: ZOLPIDEM TARTRATE 10 MG TABLET (PARK CARE ONLY) PO PRN (22:00)
[2017-01-04] MEDS: THIAMINE HCL 100 MG TABLET (FP) PO SCH (22:51)
[2017-01-05] MEDS: CYCLOBENZAPRINE HCL 10 MG TABLET (FP) PO PRN (05:49)
[2017-01-05] MEDS: diazePAM 5 MG TABLET PO PRN (05:50)
[2017-01-05] MEDS: METHADONE HCL 5 MG TABLET (FOR DETOX USE ONLY) PO SCH (10:21)
[2017-01-05] MEDS: diazePAM 5 MG TABLET PO SCH (10:21)
[2017-01-05] MEDS: cloNIDine HCL 0.1 MG TABLET PO SCH (10:21)
[2017-01-05] MEDS: NICOTINE 21 MG/24 HOURS TOPICAL PATCH TD SCH (10:21)
[2017-01-05] MEDS: PRENATAL VITAMINS W/ FOLIC ACID TABLET (FP) PO SCH (10:21)
[2017-01-05 11:21] VITALS: BP 110/71; PULSE 76; TEMP 96.8
--- NOTE | 2017-01-05 12:01 | DS ---
[facility] Detox Discharge Summary Admission Date: 01/02/17 Discharge Date: 01/05/17 (AMA) - History Present History: Alcohol Dependence, Opioid Dependence, Sedative Dependence Additional Comments: PT DECLINED TO CONTINUE WITH DETOX AND WANTS TO LEAVE TODAY.ALL EFFORTS TO ENCOURAGED PT TO FINISH TX TOMORROW AM FAILED AND PT INSISTS ON LEAVING. ALERT O X 3. NAD. PT SIGNED OUT AMA. Pertinent Past History: SEIZURE DISORDER TINEA VESICOLOR OF CHEST WALL DEPRESSION/ANXIETY. - Physical Exam Results Vital Signs: Vital Signs Temperature 96.8 F L 01/05/17 10:20 Pulse Rate 76 01/05/17 10:20 Respiratory Rate 18 01/05/17 10:20 Blood Pressure 110/71 01/05/17 10:20 O2 Sat by Pulse Oximetry (%) Pertinent Admission Physical Exam Findings: WITHDRAWAL SX Laboratory Last Values WBC 4.6 K/mm3 (4.0-10.0) 01/03/17 07:16 RBC 4.58 M/mm3 (4.00-5.60) 01/03/17 07:16 Hgb 14.2 GM/dL (11.7-16.9) 01/03/17 07:16 Hct 41.0 % (35.4-49) 01/03/17 07:16 MCV 89.6 fl (80-96) 01/03/17 07:16 MCHC 34.5 g/dl (32.0-35.9) 01/03/17 07:16 RDW 13.1 % (11.9-15.9) 01/03/17 07:16 Plt Count 179 K/MM3 (134-434) 01/03/17 07:16 MPV 9.2 fl (7.5-11.1) 01/03/17 07:16 Sodium 138 mmol/L (136-145) 01/03/17 07:16 Potassium 4.0 mmol/L (3.5-5.1) 01/03/17 07:16 Chloride 100 mmol/L (98-107) 01/03/17 07:16 Carbon Dioxide 32 mmol/L (21-32) 01/03/17 07:16 Anion Gap 6 (8-16) L 01/03/17 07:16 BUN 9 mg/dL (7-18) 01/03/17 07:16 Creatinine 0.8 mg/dL (0.7-1.3) 01/03/17 07:16 Creat Clearance w eGFR > 60 (>60) 01/03/17 07:16 Random Glucose 89 mg/dL (74-106) D 01/03/17 07:16 Calcium 8.7 mg/dL (8.5-10.1) 01/03/17 07:16 Total Bilirubin 0.6 mg/dL (0.2-1.0) 01/03/17 07:16 AST 18 U/L (15-37) D 01/03/17 07:16 ALT 16 U/L (12-78) 01/03/17 07:16 Alkaline Phosphatase 65 U/L (45-117) 01/03/17 07:16 Total Protein 6.4 g/dl (6.4-8.2) 01/03/17 07:16 Albumin 3.5 g/dl (3.4-5.0) 01/03/17 07:16 RPR Titer Nonreactive (NONREACTIVE) 01/03/17 07:16 HIV 1&2 Antibody Screen Negative 01/03/17 07:16 HIV P24 Antigen Negative 01/03/17 07:16 - Treatment Hospital Course: Discharged Condition Good - Medication Discharge Medications: Ambulatory Orders NK [No Known Home Medication] 01/02/17 - Diagnosis (1) Nicotine dependence Status: Acute Qualifiers: Nicotine product type: cigarettes Substance use status: in withdrawal Qualified Code(s): F17.213 - Nicotine dependence, cigarettes, with withdrawal (2) Opioid dependence with withdrawal Status: Acute (3) Sedative hypnotic or anxiolytic dependence Status: Acute (4) Tinea versicolor Status: Chronic (5) Alcohol dependence with uncomplicated withdrawal Status: Acute (6) Insomnia Status: Chronic - AMA Did Patient Leave Against Medical Advice: Yes (AMA)
[2017-01-06] MEDS ORDERED: diazePAM 5 MG TABLET PO SCH (10:00)
[2017-01-06] MEDS ORDERED: METHADONE HCL 10 MG TABLET (FOR DETOX USE ONLY) PO SCH (10:00)
[2017-01-07] MEDS ORDERED: METHADONE HCL 5 MG TABLET (FOR DETOX USE ONLY) PO SCH (06:00)
== END 2017-01-05 11:00 | disposition left against medical advice (07) | DRG 770 ==
LOC: YASAS 15:05 → Y3N 16:16
PROVIDERS: ADMIT Internal Medicine Addiction Medicine; ATTEND Internal Medicine Addiction Medicine
PROC: HZ2ZZZZ Detoxification Services for Substance Abuse Treatment (ICD-10-PCS; principal; 2017-01-05)
DX: F11.23 Opioid dependence with withdrawal (principal); F13.230 Sedative, hypnotic or anxiolytic dependence with withdrawal, uncomplicated; F10.230 Alcohol dependence with withdrawal, uncomplicated; F17.213 Nicotine dependence, cigarettes, with withdrawal; F41.8 Other specified anxiety disorders; G47.00 Insomnia, unspecified; F43.10 Post-traumatic stress disorder, unspecified; B36.0 Pityriasis versicolor; R76.11 Nonspecific reaction to tuberculin skin test without active tuberculosis; R63.4 Abnormal weight loss; Z68.24 Body mass index [BMI] 24.0-24.9, adult
CPT/HCPCS: 36415; 71020-TC; 80053; 85027; 86593; 87389; 93005; 93010

== ENCOUNTER 2017-02-13 12:53 | Inpatient (IN) | payer OTHER ==
[2017-02-13 13:52] VITALS: BMI 22.7
--- NOTE | 2017-02-13 14:06 | HP ---
COWS - Scale Resting Pulse: 1= [place] 81-100 Sweatin= Chills/Flushing Restless Observation: 1= Difficult to Sit Still Pupil Size: 0= Normal to Room Light Bone or Joint Aches: 1= Mild Discomfort Runny Nose/ Eye Tearin= Runny Nose/Eyes GI Upset > 30mins: 2= Nausea/Diarrhea Tremor Observation: 1= Tremor [place], Not Seen Yawning Observation: 1= 1-2x During Session Anxiety or Irritability: 1=Feels Anxious/Irritable Goose Flesh Skin: 0=Smooth Skin COWS Score: 11 Admission ROS S - HPI Chief Complaint: I need to stop using, my family gave me an intervention. Allergies/Adverse Reactions: Allergies Allergy/AdvReac Type Severity Reaction Status Date / Time Penicillins Allergy Itching Verified 01/02/17 16:08 trazodone AdvReac agitated Verified 02/13/17 14:07 History of Present Illness: 31 yo gentleman here for detox from heroin, alprazolam, also using alcohol and smokes marijuana. Was here in detox 01/02/17 but relapsed - now plans to go to rehab following detox. History of seizures - last time nov 2016. Currently undomeciled. Exam Limitations: Clinical Condition - Ebola screening Have you traveled outside of the country in the last 21 days: No Have you had contact with anyone from an Ebola affected area: No Have you been sick,other than usual withdrawal symptoms: No Do you have a fever: No - Review of Systems Constitutional: Loss of Appetite, Malaise, Night Sweats, Changes in sleep, Unexplained wgt Loss EENT: reports: Blurred Vision Respiratory: reports: No Symptoms reported Cardiac: reports: No Symptoms Reported GI: reports: Nausea, Poor Appetite, Indigestion : reports: No Symptoms Reported Musculoskeletal: reports: Back Pain, Muscle Pain Integumentary: reports: Rash Neuro: reports: Headache, Tremors Endocrine: reports: No Symptoms Reported Hematology: reports: No Symptoms Reported Psychiatric: reports: Judgement Intact, Mood/Affect Appropiate, Orientated x3, Anxious Other Systems: Reviewed and Negative Patient History - Patient Medical History Hx Anemia: No Hx Asthma: No Hx Chronic Obstructive Pulmonary Disease (COPD): No Hx Cancer: No Hx Cardiac Disorders: No Hx Congestive Heart Failure: No Hx Hypertension: No Hx Hypercholesterolemia: No Hx Pacemaker: No HX Cerebrovascular Accident: No Hx Seizures: Yes (11/2016) Hx Dementia: No Hx Diabetes: No Hx Gastrointestinal Disorders: No Hx Liver Disease: No Hx Genitourinary Disorders: No Hx Sexually Transmitted Disorders: No Hx Renal Disease (ESRD): No Hx Thyroid Disease: No Hx Human Immunodeficiency Virus (HIV): No (11/03 NEGATIVE) Hx Hepatitis C: No Hx Depression: Yes (ANXIETY,INSOMNIA) Hx Suicide Attempt: No Hx Bipolar Disorder: No Hx Schizophrenia: No Other Medical History: tineaversicolor ; PPD+ with normal CXR 01/04/2017 - Patient Surgical History Past Surgical History: Yes Hx Neurologic Surgery: No Hx Cataract Extraction: No Hx Cardiac Surgery: No Hx Lung Surgery: No Hx Breast Surgery: No Hx Breast Biopsy: No Hx Abdominal Surgery: No Hx Appendectomy: No Hx Cholecystectomy: No Hx Genitourinary Surgery: No Hx Section: No Hx Orthopedic Surgery: No Other Surgical History: tonsilectomy age 7 Anesthesia Reaction: No - PPD History Previous Implant?: Yes Documented Results: Positive w/o proof Implanted On Prior R Admission?: No Date: 01/04/17 (cxr normal) PPD to be Administered?: No - Reproductive History Patient is a Female of Child Bearing Age (11 -55 yrs old): No (male) - Smoking Cessation Smoking history: Current every day smoker Have you smoked in the past 12 months: Yes Aproximately how many cigarettes per day: 20 Cigars Per Day: 0 Hx Chewing Tobacco Use: No Initiated information on smoking cessation: Yes 'Breaking Loose' booklet given: 02/13/17 (give on floor) - Substance & Tx. History Hx Alcohol Use: Yes Hx Substance Use: Yes Substance Use Type: Alcohol, Heroin, Marijuana, Tranquilizers Hx Substance Use Treatment: Yes (detox, suboxone, rehab) - Substances Abused Heroin Route: Injection Frequency: Daily Amount used: 2 bundles Age of first use: 23 Date of Last Use: 02/12/17 Alprazolam (Xanax) Route: Oral Frequency: Daily Amount used: three two mg sticks Age of first use: 18 Date of Last Use: 02/12/17 Alcohol Route: Oral Frequency: 3-6 times per week Amount used: 1/2 pint Age of first use: 14 Date of Last Use: 02/12/17 Marijuana/Hashish Route: Smoking Frequency: Daily Amount used: 1 joint Age of first use: 14 Date of Last Use: 02/13/17 Family Disease History - Family Disease History Family Disease History: Diabetes: Mother (alive), Respiratory: Sister (one ), Other: Father (alive, colitis), Mother, Brother (two younger - alive, no problems) Admission Physical Exam [facility] - Vital Signs Vital Signs: Vital Signs - 24 hr 02/13/17 13:48 Temperature 97 F L Pulse Rate 96 H Respiratory 20 Rate Blood Pressure 142/94 - Physical General Appearance: Yes: Appropriately Dressed, Moderate Distress, Thin, Tremorous, Anxious HEENTM: Yes: Hearing grossly Normal, Normocephalic, Normal Voice, Pharynx Normal Respiratory: Yes: Normal Breath Sounds, No Respiratory Distress Neck: Yes: No masses,lesions,Nodules, Supple Breast: Yes: Breast Exam Deferred Cardiology: Yes: Regular Rhythm, Regular Rate Abdominal: Yes: Flat, Soft Genitourinary: Yes: Within Normal Limits Back: Yes: Normal Inspection Musculoskeletal: Yes: full range of Motion, Gait Steady Extremities: Yes: Normal Inspection, Normal Range of Motion, Non-Tender Neurological: Yes: Fully Oriented, Alert, Normal Mood/Affect, Normal Response, Numbness Integumentary: Yes: Normal Color, Warm, Rash (chronic scattered erythematous flat rash abdomen, arms), Track Velásquez (track velásquez both arms antecubital space) Lymphatic: Yes: Within Normal Limits - Diagnostic (1) Alcohol dependence with uncomplicated withdrawal Current Visit: Yes Status: Chronic (2) Nicotine dependence Current Visit: Yes Status: Chronic Qualifiers: Nicotine product type: cigarettes Substance use status: in withdrawal Qualified Code(s): F17.213 - Nicotine dependence, cigarettes, with withdrawal (3) Opioid dependence with withdrawal Current Visit: Yes Status: Chronic (4) Sedative hypnotic or anxiolytic dependence Current Visit: Yes Status: Chronic (5) Tinea versicolor Current Visit: Yes Status: Chronic (6) Weight loss Current Visit: Yes Status: Chronic (7) Positive PPD Current Visit: Yes Status: Chronic Comment: states never received treatment but cxr always negative last cxr 2016 Cleared for Admission [facility] - Detox or Rehab [facility] Level of Care: Medically Managed Detox Regimen/Protocol: Methadone/Valium [facility] Breath Alcohol Content Breath Alcohol Content: 0 Urine Drug Screen - Results Drug Screen Negative: No Urine Drug Screen Results: THC-Marijuana, OPI-Opiates, BZO-Benzodiazepines, MTD- Methadone
[2017-02-13] MEDS ORDERED: MENTHOL/PHENOL 1 EACH UD MM PRN (14:20)
[2017-02-13] MEDS ORDERED: guaiFENesin/D-METHORPHAN HB 10 ML UNIT-DOSE CUPS PO PRN (14:20)
[2017-02-13] MEDS ORDERED: LOPERAMIDE HCL 2 MG CAPSULE PO PRN (14:20)
[2017-02-13] MEDS ORDERED: ACETAMINOPHEN 325 MG TABLET (FP) PO PRN (14:20)
[2017-02-13] MEDS ORDERED: MAGNESIUM HYDROX 2400MG/30ML ORAL SUSPENSION 30 ML CUP PO PRN (14:20)
[2017-02-13] MEDS ORDERED: NICOTINE POLACRILEX 4 MG GUM BC PRN (14:20)
[2017-02-13] MEDS ORDERED: MAG HYDROX/AL HYDROX/SIMETH 30 ML UNIT-DOSE CUP PO PRN (14:20)
[2017-02-13] MEDS ORDERED: hydrOXYzine PAMOATE 50 MG CAPSULE (FP) PO PRN (14:20)
[2017-02-13] MEDS ORDERED: P-EPHED 60MG/TRIPROLIDI 2.5MG TABLET PO PRN (14:20)
[2017-02-13] MEDS ORDERED: IBUPROFEN 400 MG TABLET (FP) PO PRN (14:20)
[2017-02-13] MEDS ORDERED: MAGNESIUM CITRATE 300 ML BOTTLE PO PRN (14:20)
[2017-02-13] MEDS ORDERED: METHADONE HCL 10 MG TABLET (FOR DETOX USE ONLY) PO ONE ×2 (17:45→23:00)
[2017-02-13] MEDS ORDERED: diazePAM 5 MG TABLET PO ONE (17:45)
[2017-02-13] MEDS: SELENIUM SULFIDE 2.5% LOTION 4 OZ. TP SCH (19:38)
[2017-02-13] MEDS: NICOTINE 21 MG/24 HOURS TOPICAL PATCH TD SCH (19:38)
[2017-02-13] MEDS: THIAMINE HCL 100 MG TABLET (FP) PO SCH (22:21)
[2017-02-13] MEDS: diazePAM 5 MG TABLET PO SCH (22:22)
[2017-02-13] MEDS: diphenhydrAMINE HCL 50 MG CAPSULE PO PRN (22:26)
[2017-02-14] MEDS: diazePAM 5 MG TABLET PO SCH ×3 (05:41→22:13)
[2017-02-14] MEDS ORDERED: METHADONE HCL 10 MG TABLET (FOR DETOX USE ONLY) PO SCH (10:00)
[2017-02-14] MEDS ORDERED: PRENATAL VITAMINS W/ FOLIC ACID TABLET (FP) PO SCH (10:00)
[2017-02-14 10:29] LABS: MCH 30.8 pg (25.7-33.7); MCHC 34.1 g/dl (32.0-35.9); MEAN CELL VOLUME 90.2 fl (80-96); MEAN PLT VOLUME 8.9 fl (7.5-11.1); PLATELET COUNT 180 K/MM3 (134-434); WHITE BLOOD COUNT 4.2 K/mm3 (4.0-10.0)
[2017-02-14 10:55] LABS: ALBUMIN 3.6 g/dl (3.4-5.0); ALK PHOS 54 U/L (45-117); ANION GAP 8 (8-16); BILIRUBIN,TOTAL 0.3 mg/dL (0.2-1.0); CALCIUM 8.7 mg/dL (8.5-10.1); CO2 32 mmol/L (21-32); COCKROFT - GAULT 138.31; CREATININE 0.7 mg/dL (0.7-1.3); GLUCOSE,RANDOM 92 mg/dL (74-106); SGOT/AST 20 U/L (15-37); SGPT/ALT 18 U/L (12-78); TOT PROT 6.4 g/dl (6.4-8.2)
[2017-02-14] MEDS: diazePAM 5 MG TABLET PO PRN ×3 (11:02→23:45)
[2017-02-14] MEDS: NICOTINE 21 MG/24 HOURS TOPICAL PATCH TD SCH (11:02)
[2017-02-14] MEDS: SELENIUM SULFIDE 2.5% LOTION 4 OZ. TP SCH (11:03)
[2017-02-14 11:30] LABS: HIV 1 & 2 AB NEGATIVE; HIV 1 AGp24 NEGATIVE
--- NOTE | 2017-02-14 13:27 | PN ---
S CIWA - CIWA Score Nausea/Vomitin Muscle Tremors: 3 Anxiety: 3 Agitation: 3 Paroxysmal Sweats: 1-Minimal Palms Moist Orientation: 0-Oriented Tacttile Disturbances: 1-Very Mild Itch/Numbness Auditory Disturbances: 1-Very Mild Visual Disturbances: 1-Very Mild Sensitivity Headache: 2-Mild CIWA-Ar Total Score: 18 BHS COWS - Scale Resting Pulse: 1= [place] 81-100 Sweatin= Chills/Flushing Restless Observation: 3= Extraneous Movement Pupil Size: 1= Pupils >than Normal Bone or Joint Aches: 2= Severe Diffuse Aches Runny Nose/ Eye Tearin= Runny Nose/Eyes GI Upset > 30mins: 3= Vomiting/Diarrhea Tremor Observation of Outstretched Hands: 2= Slight Tremor Visible Yawning Observation: 2= >3x During Session Anxiety or Irritability: 2=Irritable/Anxious Goose Flesh Skin: 0=Smooth Skin COWS Score: 19 S Progress Note (SOAP) Subjective: ALERT,IRRITABLE,ANXIOUS,INTERRUPTED SLEEP,TREMOR,PAIN IN THE BODY AND BACK Objective: 02/14/17 13:23 Vital Signs Temperature 96.4 F L 02/14/17 07:12 Pulse Rate 68 02/14/17 07:12 Respiratory Rate 16 02/14/17 07:12 Blood Pressure 123/83 02/14/17 07:12 O2 Sat by Pulse Oximetry (%) EKG NSR Laboratory Last Values WBC 4.2 K/mm3 (4.0-10.0) 02/14/17 07:50 RBC 4.62 M/mm3 (4.00-5.60) 02/14/17 07:50 Hgb 14.2 GM/dL (11.7-16.9) 02/14/17 07:50 Hct 41.7 % (35.4-49) 02/14/17 07:50 MCV 90.2 fl (80-96) 02/14/17 07:50 MCHC 34.1 g/dl (32.0-35.9) 02/14/17 07:50 RDW 13.0 % (11.9-15.9) 02/14/17 07:50 Plt Count 180 K/MM3 (134-434) 02/14/17 07:50 MPV 8.9 fl (7.5-11.1) 02/14/17 07:50 Sodium 140 mmol/L (136-145) 02/14/17 07:50 Potassium 4.2 mmol/L (3.5-5.1) 02/14/17 07:50 Chloride 100 mmol/L (98-107) 02/14/17 07:50 Carbon Dioxide 32 mmol/L (21-32) 02/14/17 07:50 Anion Gap 8 (8-16) 02/14/17 07:50 BUN 10 mg/dL (7-18) 02/14/17 07:50 Creatinine 0.7 mg/dL (0.7-1.3) 02/14/17 07:50 Creat Clearance w eGFR > 60 (>60) 02/14/17 07:50 Random Glucose 92 mg/dL (74-106) 02/14/17 07:50 Calcium 8.7 mg/dL (8.5-10.1) 02/14/17 07:50 Total Bilirubin 0.3 mg/dL (0.2-1.0) D 02/14/17 07:50 AST 20 U/L (15-37) 02/14/17 07:50 ALT 18 U/L (12-78) 02/14/17 07:50 Alkaline Phosphatase 54 U/L (45-117) 02/14/17 07:50 Total Protein 6.4 g/dl (6.4-8.2) 02/14/17 07:50 Albumin 3.6 g/dl (3.4-5.0) 02/14/17 07:50 RPR Titer Nonreactive (NONREACTIVE) 02/14/17 07:50 HIV 1&2 Antibody Screen Negative 02/14/17 07:50 HIV P24 Antigen Negative 02/14/17 07:50 Assessment: 02/14/17 13:27 WITHDRAWAL SYMPTOM Plan: CONTINUE DETOX
[2017-02-14] MEDS: diphenhydrAMINE HCL 50 MG CAPSULE PO PRN (22:13)
[2017-02-14] MEDS: THIAMINE HCL 100 MG TABLET (FP) PO SCH (22:13)
--- NOTE | 2017-02-15 00:13 | EKG ---
Test Reason : Blood Pressure : / mmHG Vent. Rate : 071 BPM Atrial Rate : 071 BPM P-R Int : 146 ms QRS Dur : 100 ms QT Int : 384 ms P-R-T Axes : 062 073 052 degrees QTc Int : 417 ms NORMAL SINUS RHYTHM NORMAL ECG WHEN COMPARED WITH ECG OF 02-JAN-2017 17:48, NO SIGNIFICANT CHANGE WAS FOUND Confirmed by JACK WILL MD ([id number]) on 02/15/2017 12:13:04 AM Referred By: Confirmed By:JACK WILL MD
[2017-02-15] MEDS: diazePAM 5 MG TABLET PO PRN (06:07)
[2017-02-15] MEDS ORDERED: METHADONE HCL 5 MG TABLET (FOR DETOX USE ONLY) PO SCH (10:00)
[2017-02-15] MEDS ORDERED: diazePAM 5 MG TABLET PO SCH (10:00)
[2017-02-15] MEDS ORDERED: CYCLOBENZAPRINE HCL 10 MG TABLET (FP) PO PRN (10:16)
--- NOTE | 2017-02-15 10:20 | PN ---
[facility] CIWA - CIWA Score Nausea/Vomitin Muscle Tremors: 3 Anxiety: 3 Agitation: 4-Moderately Restless Paroxysmal Sweats: 3 Orientation: 0-Oriented Tacttile Disturbances: 2-Mild Itch/Numbness/Burn Auditory Disturbances: 0-None Visual Disturbances: 0-None Headache: 0-None Present CIWA-Ar Total Score: 18 BHS COWS - Scale Resting Pulse: 0= [place] 80 or Below Sweatin=Flushed/Facial Moisture Restless Observation: 1= Difficult to Sit Still Pupil Size: 1= Pupils >than Normal Bone or Joint Aches: 2= Severe Diffuse Aches Runny Nose/ Eye Tearin= Runny Nose/Eyes GI Upset > 30mins: 2= Nausea/Diarrhea Tremor Observation of Outstretched Hands: 2= Slight Tremor Visible Yawning Observation: 1= 1-2x During Session Anxiety or Irritability: 2=Irritable/Anxious Goose Flesh Skin: 0=Smooth Skin COWS Score: 15 S Progress Note (SOAP) Subjective: interrupted seep sweats, shakes , achy , anxious Objective: 02/15/17 10:18 Vital Signs Temperature 97.7 F 02/15/17 06:00 Pulse Rate 73 02/15/17 06:00 Respiratory Rate 16 02/15/17 06:00 Blood Pressure 92/62 02/15/17 06:00 O2 Sat by Pulse Oximetry (%) Laboratory Tests 02/14/17 02/14/17 02/14/17 07:50 07:50 07:50 WBC 4.2 RBC 4.62 Hgb 14.2 Hct 41.7 MCV 90.2 MCHC 34.1 RDW 13.0 Plt Count 180 MPV 8.9 Sodium 140 Potassium 4.2 Chloride 100 Carbon Dioxide 32 Anion Gap 8 BUN 10 Creatinine 0.7 Creat Clearance w eGFR > 60 Random Glucose 92 Calcium 8.7 Total Bilirubin 0.3 D AST 20 ALT 18 Alkaline Phosphatase 54 Total Protein 6.4 Albumin 3.6 RPR Titer Nonreactive HIV 1&2 Antibody Screen HIV P24 Antigen 02/14/17 07:50 WBC RBC Hgb Hct MCV MCHC RDW Plt Count MPV Sodium Potassium Chloride Carbon Dioxide Anion Gap BUN Creatinine Creat Clearance w eGFR Random Glucose Calcium Total Bilirubin AST ALT Alkaline Phosphatase Total Protein Albumin RPR Titer HIV 1&2 Antibody Screen Negative HIV P24 Antigen Negative pt aox3 lying in bed irritable 05/01/17 10:40 Assessment: 02/15/17 10:19 withdrawal sx;s 02/15/17 10:40 Plan: cont. detox increase fluids flexeril 10mg tid/prn clonidine 0.1mg bid motrin prn
[2017-02-15] MEDS ORDERED: cloNIDine HCL 0.1 MG TABLET PO ONE (10:25)
[2017-02-15 10:34] VITALS: BP 112/70; PULSE 86; TEMP 97.9
--- NOTE | 2017-02-15 10:51 | DS ---
[facility] Detox Discharge Summary Admission Date: 02/13/17 Discharge Date: 02/15/17 - History Present History: Alcohol Dependence, Opioid Dependence, Sedative Dependence - Physical Exam Results Vital Signs: Vital Signs Temperature 97.9 F 02/15/17 10:00 Pulse Rate 86 02/15/17 10:00 Respiratory Rate 18 02/15/17 10:00 Blood Pressure 112/70 02/15/17 10:00 O2 Sat by Pulse Oximetry (%) - Treatment Hospital Course: Detox Protocol Followed - Medication Discharge Medications: Ambulatory Orders Selenium Sulfide [Selsun Brown 2.5% Lotion] 1 applic TP DAILY 02/13/17 - Diagnosis (1) Alcohol dependence with uncomplicated withdrawal Current Visit: Yes Status: Chronic (2) Nicotine dependence Current Visit: Yes Status: Chronic Qualifiers: Nicotine product type: cigarettes Substance use status: uncomplicated Qualified Code(s): F17.210 - Nicotine dependence, cigarettes, uncomplicated (3) Opioid dependence with withdrawal Current Visit: Yes Status: Chronic (4) Sedative hypnotic or anxiolytic dependence Current Visit: Yes Status: Chronic (5) Anxiety and depression Status: Chronic (6) PTSD (post-traumatic stress disorder) Current Visit: Yes Status: Chronic - AMA Did Patient Leave Against Medical Advice: Yes (wants to leave is uneasy doesn't want anything except to leave )
[2017-02-15] MEDS ORDERED: cloNIDine HCL 0.1 MG TABLET PO SCH (22:00)
[2017-02-17] MEDS ORDERED: METHADONE HCL 10 MG TABLET (FOR DETOX USE ONLY) PO SCH (10:00)
[2017-02-17] MEDS ORDERED: diazePAM 5 MG TABLET PO SCH (10:00)
[2017-02-18] MEDS ORDERED: METHADONE HCL 5 MG TABLET (FOR DETOX USE ONLY) PO SCH (06:00)
== END 2017-02-15 11:10 | disposition left against medical advice (07) | DRG 770 ==
LOC: YASAS 12:53 → Y6N 17:09
PROVIDERS: ADMIT Internal Medicine; ATTEND Internal Medicine Addiction Medicine
PROC: HZ2ZZZZ Detoxification Services for Substance Abuse Treatment (ICD-10-PCS; principal; 2017-02-15)
DX: F11.23 Opioid dependence with withdrawal (principal); F13.230 Sedative, hypnotic or anxiolytic dependence with withdrawal, uncomplicated; F10.230 Alcohol dependence with withdrawal, uncomplicated; F17.210 Nicotine dependence, cigarettes, uncomplicated; F41.8 Other specified anxiety disorders; F43.10 Post-traumatic stress disorder, unspecified; R76.11 Nonspecific reaction to tuberculin skin test without active tuberculosis; B36.0 Pityriasis versicolor; R63.4 Abnormal weight loss; Z68.22 Body mass index [BMI] 22.0-22.9, adult
CPT/HCPCS: 36415; 80053; 85027; 86593; 87389; 93005; 93010